=== PATIENT | female | born 1970 | race Caucasian/White ===

== ENCOUNTER 2018-05-14 06:29 | Inpatient (IN) | payer MEDICARE, OTHER ==
[2018-05-14] MEDS ORDERED: CEFAZOLIN 1 GM INJ ×2 (07:00→09:42)
[2018-05-14] MEDS: GELATIN SIZE 100 SPONGE (07:49)
[2018-05-14] MEDS: BUPIVACAINE 0.5%/EPI (SDV) 30 ML INJ (07:49)
[2018-05-14] MEDS: CEFAZOLIN 1 GM INJ (07:49)
[2018-05-14] MEDS ORDERED: HEPARIN 1000 UNITS/ML 10 ML INJ (07:49)
[2018-05-14] MEDS: THROMBIN 5000 UNIT VIAL (07:49)
[2018-05-14] MEDS ORDERED: MEPERIDINE 100 MG INJ (08:03)
[2018-05-14] MEDS ORDERED: ROCURONIUM 50 MG INJ ×2 (08:03→10:55)
[2018-05-14] MEDS ORDERED: NEOSTIGMINE 3 MG/3 ML SYRINGE (08:03)
[2018-05-14] MEDS ORDERED: LIDOCAINE 2% (SDV) 5 ML INJ (08:03)
[2018-05-14] MEDS ORDERED: PROPOFOL 20 ML (08:03)
[2018-05-14] MEDS ORDERED: GLYCOPYRROLATE 0.4 MG INJ (08:03)
[2018-05-14] MEDS ORDERED: SUCCINYLCHOLINE CHLORIDE 100 MG/5 ML SYG IV (08:03)
[2018-05-14] MEDS ORDERED: MIDAZOLAM 1 MG/ML 2 ML INJ (08:12)
[2018-05-14] MEDS ORDERED: SUGAMMADEX SODIUM 200 MG/2 ML VIAL IV (11:11)
[2018-05-14] MEDS ORDERED: MEPERIDINE 25 MG INJ IV (12:00)
[2018-05-14] MEDS ORDERED: hydrALAzine 20 MG INJ IV (12:00)
[2018-05-14] MEDS ORDERED: EPHEDrine SULFATE 50 MG/5 ML SYG IV (12:00)
[2018-05-14] MEDS ORDERED: OXYCODONE/ACETAMINOPHEN (5/325) TAB PO ×2 (12:00)
[2018-05-14] MEDS ORDERED: LABETALOL HCL 20MG INJ IV (12:00)
[2018-05-14] MEDS ORDERED: METOCLOPRAMIDE 10 MG INJ IV (12:00)
[2018-05-14] MEDS ORDERED: DIPHENHYDRAMINE 50 MG INJ IV (12:00)
[2018-05-14] MEDS ORDERED: FENTAnyl 50 MCG/ML VIAL IV ×3 (12:00)
[2018-05-14] MEDS ORDERED: ONDANSETRON 4 MG INJ IV (12:00)
[2018-05-14] MEDS ORDERED: HYDROmorphONE 1 MG/5 ML IV SYRINGE IV ×3 (12:00)
[2018-05-14] MEDS ORDERED: MIDAZOLAM 1 MG/ML 2 ML INJ IV (12:00)
[2018-05-14] MEDS ORDERED: EPHEDrine SULFATE 50 MG/5 ML SYG (12:22)
[2018-05-14] MEDS ORDERED: HYDROCODONE/APAP (5/325) TAB PO ×2 (13:00)
[2018-05-14] MEDS ORDERED: NACL 0.9% 3 ML SYG IV (13:00)
[2018-05-14] MEDS ORDERED: ACETAMINOPHEN 325 MG TAB PO (13:00)
[2018-05-14] MEDS ORDERED: NALOXONE (0.4 MG/ML) INJ IV (13:00)
[2018-05-14] MEDS ORDERED: PROCHLORPERAZINE 10 MG TAB PO (13:00)
[2018-05-14] MEDS ORDERED: AL HYDROX/MG HYDROX/SIMETH 30 ML CUP PO (13:00)
[2018-05-14] MEDS: HYDROmorphONE 0.2 MG/ML PCA IV ×2 (13:55→23:54)
[2018-05-14] MEDS: DEXTROSE 5%-0.45% NACL 1,000 ML IV ×2 (17:45→22:58)
[2018-05-14] MEDS: CEFAZOLIN 1 GM/50 ML (PMX) 50 ML IVPB (17:45)
[2018-05-14] MEDS: RANITIDINE 150 MG TAB PO (20:12)
[2018-05-14] MEDS: DEXAMETHASONE 10 MG/ML 1 ML INJ IV (22:07)
[2018-05-15] MEDS: CEFAZOLIN 1 GM/50 ML (PMX) 50 ML IVPB ×3 (00:08→13:31)
[2018-05-15] MEDS: DEXTROSE 5%-0.45% NACL 1,000 ML IV (04:39)
[2018-05-15 05:10] LABS: HEMATOCRIT 36.5 % (37.0-47.0); HEMOGLOBIN 12.4 g/dl (12.0-16.0)
[2018-05-15] MEDS: PANTOPRAZOLE (EC) 40 MG TAB PO (05:36)
[2018-05-15 05:42] LABS: ANION GAP 10 (8-16); BLOOD UREA NITROGEN 7 mg/dl (7-20); CALCIUM 8.2 mg/dl (8.4-10.2); CARBON DIOXIDE 28 mmol/L (21-31); CHLORIDE 106 mmol/L (97-110); CREATININE 0.56 mg/dl (0.44-1.00); GLUCOSE 142 mg/dl (70-220); POTASSIUM 4.4 mmol/L (3.5-5.1); SODIUM 140 mmol/L (135-144)
[2018-05-15] MEDS: DOCUSATE SODIUM 100 MG CAP PO ×2 (09:49→20:40)
[2018-05-15] MEDS: HYDROmorphONE 0.2 MG/ML PCA IV (12:39)
[2018-05-15] MEDS: POLYETHYLENE GLYCOL 17 GM PACKET PO (14:30)
[2018-05-16] MEDS: HYDROmorphONE 0.2 MG/ML PCA IV (01:32)
[2018-05-16] MEDS: DEXTROSE 5%-0.45% NACL 1,000 ML IV ×3 (01:35→14:59)
[2018-05-16] MEDS: PANTOPRAZOLE (EC) 40 MG TAB PO (05:06)
[2018-05-16 08:53] LABS: ADD MAN DIFF? NO
[2018-05-16 08:55] LABS: BASOPHILS % 0.1 % (0.0-2.0); EOSINOPHILS % 0.3 % (0.0-7.0); HEMATOCRIT 30.5 % (37.0-47.0); HEMOGLOBIN 10.7 g/dl (12.0-16.0); LYMPHOCYTES # 2.2 10^3/ul (0.8-2.9); LYMPHOCYTES % 15.4 % (15.0-51.0); MEAN CORPUSCULAR HEMOGLOBIN 33.2 pg (29.0-33.0); MEAN CORPUSCULAR HGB CONC 35.1 g/dl (32.0-37.0); MEAN CORPUSCULAR VOLUME 94.7 fl (82.0-101.0); MEAN PLATELET VOLUME 10.7 fl (7.4-10.4); MONOCYTES % 7.1 % (0.0-11.0); NEUTROPHIL # 10.7 10^3/ul (1.6-7.5); NEUTROPHILS % 76.6 % (39.0-77.0); PLATELET COUNT 214 10^3/UL (140-415); RED BLOOD COUNT 3.22 10^6/ul (4.20-5.40); RED CELL DISTRIBUTION WIDTH 12.2 % (11.5-14.5)
[2018-05-16] MEDS: DOCUSATE SODIUM 100 MG CAP PO ×2 (09:12→20:36)
[2018-05-16] MEDS: POLYETHYLENE GLYCOL 17 GM PACKET PO (09:12)
[2018-05-16 09:18] LABS: ANION GAP 8 (8-16); BLOOD UREA NITROGEN 4 mg/dl (7-20); CARBON DIOXIDE 30 mmol/L (21-31); CHLORIDE 101 mmol/L (97-110); CREATININE 0.59 mg/dl (0.44-1.00); GLUCOSE 109 mg/dl (70-220); POTASSIUM 3.5 mmol/L (3.5-5.1); SODIUM 135 mmol/L (135-144)
[2018-05-16] MEDS: HYDROCODONE/APAP (10/325) TAB PO ×2 (11:41→20:35)
[2018-05-16] MEDS: HYDROmorphONE 0.5 MG/0.5 ML SYG IV (14:30)
[2018-05-16] MEDS: ONDANSETRON 4 MG INJ IV (16:26)
[2018-05-17] MEDS: DEXTROSE 5%-0.45% NACL 1,000 ML IV ×3 (00:59→20:59)
[2018-05-17] MEDS: HYDROCODONE/APAP (10/325) TAB PO ×5 (05:40→21:59)
[2018-05-17] MEDS: PANTOPRAZOLE (EC) 40 MG TAB PO (05:40)
[2018-05-17] MEDS: MAGNESIUM CITRATE 300 ML BTL PO (05:40)
[2018-05-17] MEDS: POLYETHYLENE GLYCOL 17 GM PACKET PO (09:24)
[2018-05-17] MEDS: HYDROmorphONE 0.5 MG/0.5 ML SYG IV (09:24)
[2018-05-17] MEDS: DOCUSATE SODIUM 100 MG CAP PO ×2 (09:24→21:59)
[2018-05-17 11:33] LABS: ADD MAN DIFF? NO
[2018-05-17 11:40] LABS: BASOPHILS % 0.3 % (0.0-2.0); EOSINOPHILS % 0.4 % (0.0-7.0); HEMATOCRIT 33.4 % (37.0-47.0); HEMOGLOBIN 11.3 g/dl (12.0-16.0); LYMPHOCYTES # 2.3 10^3/ul (0.8-2.9); LYMPHOCYTES % 21.9 % (15.0-51.0); MEAN CORPUSCULAR HEMOGLOBIN 31.8 pg (29.0-33.0); MEAN CORPUSCULAR HGB CONC 33.8 g/dl (32.0-37.0); MEAN CORPUSCULAR VOLUME 94.1 fl (82.0-101.0); MEAN PLATELET VOLUME 10.7 fl (7.4-10.4); MONOCYTE # 0.7 10^3/ul (0.3-0.9); MONOCYTES % 6.3 % (0.0-11.0); NEUTROPHIL # 7.3 10^3/ul (1.6-7.5); NEUTROPHILS % 70.7 % (39.0-77.0); PLATELET COUNT 274 10^3/UL (140-415); RED BLOOD COUNT 3.55 10^6/ul (4.20-5.40); RED CELL DISTRIBUTION WIDTH 12.1 % (11.5-14.5)
[2018-05-17 11:40] LABS: WHITE BLOOD COUNT 10.4 10^3/ul (4.8-10.8)
[2018-05-17 12:11] LABS: ANION GAP 7 (8-16); BLOOD UREA NITROGEN 6 mg/dl (7-20); CALCIUM 8.9 mg/dl (8.4-10.2); CARBON DIOXIDE 34 mmol/L (21-31); CHLORIDE 103 mmol/L (97-110); GLUCOSE 86 mg/dl (70-220); SODIUM 140 mmol/L (135-144)
[2018-05-17] MEDS: BISACODYL 10 MG SUPP PR (21:59)
[2018-05-18] MEDS: PANTOPRAZOLE (EC) 40 MG TAB PO (05:49)
[2018-05-18] MEDS: DEXTROSE 5%-0.45% NACL 1,000 ML IV (06:59)
[2018-05-18] MEDS: SILVER SULFADIAZINE 1% 25 GM CR TOP (08:32)
[2018-05-18] MEDS: DOCUSATE SODIUM 100 MG CAP PO (08:42)
[2018-05-18] MEDS: POLYETHYLENE GLYCOL 17 GM PACKET PO (08:42)
[2018-05-18] MEDS: HYDROCODONE/APAP (10/325) TAB PO (10:38)
== END 2018-05-18 15:10 | disposition home or self-care (01) | DRG 455 ==
LOC: REC 06:29 → MS1 16:25
PROC: 0SG30A0 Fusion of Lumbosacral Joint with Interbody Fusion Device, Anterior Approach, Anterior Column, Open Approach (ICD-10-PCS; principal; 2018-05-14 08:00)
PROC: 0SG30J1 Fusion of Lumbosacral Joint with Synthetic Substitute, Posterior Approach, Posterior Column, Open Approach (ICD-10-PCS; 2018-05-14 08:00)
PROC: 0SB40ZZ Excision of Lumbosacral Disc, Open Approach (ICD-10-PCS; 2018-05-14 08:00)
PROC: 4A11X4G Monitoring of Peripheral Nervous Electrical Activity, Intraoperative, External Approach (ICD-10-PCS; 2018-05-14 08:00)
DX: M51.17 Intervertebral disc disorders with radiculopathy, lumbosacral region (principal); M48.07 Spinal stenosis, lumbosacral region; I10 Essential (primary) hypertension; E78.5 Hyperlipidemia, unspecified; M79.7 Fibromyalgia; Z79.52 Long term (current) use of systemic steroids; K21.9 Gastro-esophageal reflux disease without esophagitis
CPT/HCPCS: 72100; 80048; 84703; 85014; 85018; 85025; 86850; 86900; 86901; 86920; 87086; 88304; 97110; 97116; 97163; 97530